=== PATIENT | male | born 2000 | race Caucasian/White ===

== ENCOUNTER 2020-10-15 17:48 | Emergency (ER) | payer BC ==
[2020-10-15] MEDS ORDERED: LIDOCAINE 2.5%/PRILOCAINE 2.5% (5 Gram/TUBE) TP ONE ×2 (17:53→17:56)
[2020-10-15] MEDS ORDERED: DIPHTH,PERTUSS(ACELL),TET 0.5 ML DISP.SYRIN IM ONE (17:56)
[2020-10-15 18:12] VITALS: BP 149/88; PULSE 80; TEMP 99.4; BMI 23.6
[2020-10-15] MEDS ORDERED: LIDO 2%/EPI 1:200000 PRESRVFRE (20 ML SDVIAL) ONE (18:17)
== END 2020-10-15 18:53 | disposition home or self-care (01) ==
LOC: FER 17:48
PROC: 3E0234Z Introduction of Serum, Toxoid and Vaccine into Muscle, Percutaneous Approach (ICD-10-PCS; principal; 2020-10-15)
DX: S01.81XA Laceration without foreign body of other part of head, initial encounter (principal)
CPT/HCPCS: 90715; 99284-25